=== PATIENT | female | born 1980 | race Caucasian/White ===

== ENCOUNTER 2017-03-12 16:39 | Emergency (ER) | payer OTHER ==
[~2017-03-12] VITALS: Ht 160 cm; Wt 69.9 kg
[~2017-03-12 16:39] MED LIST: CYCL10TA2 PO; NAPR500T PO; SERT100T PO; birth control pill
[2017-03-12] MEDS ORDERED: BISACODYL 5 MG TABLET.DR. PO STA (17:04)
[2017-03-12] MEDS ORDERED: BISACODYL 10 MG SUPP.RECT. PR ONE (17:15)
[2017-03-12] MEDS ORDERED: MAGNESIUM CITRATE 296 ML SOLUTION. PO ONE (17:15)
[2017-03-12] MEDS ORDERED: BISA10SU55 RC (17:51)
[2017-03-12] MEDS ORDERED: MAGN296S PO (17:51)
--- NOTE | 2017-03-12 17:52 | PHYS DOC ---
Past Medical History Past Medical History: Depression Past Surgical History: , Other Additional Past Surgical Histo: dental surgery Alcohol Use: None Drug Use: None Adult General Chief Complaint Chief Complaint: CONTISPATION HPI HPI Patient is a 36 year old female who presents here today secondary to constipation. Patient reports that her last bowel movement was approximately one week ago. Patient reports that she normally has one bowel movement every 3- 4 days. Patient reports that she was recently started on Pristiq and has been on hydrocodone for approximately 1 week secondary to dental procedure. Patient reports that she's tried some of her grandmother's medications at home that her grandmother uses for constipation without any significant relief. Patient denies any history of hypertension diabetes liver longer kidney problems. Patient has had a in the past but no other abdominal surgeries. Patient does smoke and no alcohol or drugs. Smoking cessation was discussed with the patient. Patient is allergic to penicillin and Augmentin. Patient denies any fevers shakes chills nausea vomiting diarrhea abdominal pain chest pain shortness of breath dysuria frequency or urgency. Patient's physical exam was unremarkable. Patient NABS. Patient's abdomen was soft nontender no rebound or guarding. Patient present with any signs or symptoms of be consistent with an acute surgical abdomen. A/P constipation: This is clinically and hemodynamically stable. Patient does not show any evidence of obstruction. Patient's obstruction series in the ER showed nonspecific gas pattern and no free air or air-fluid levels. Patient is stable for discharge home and to continue outpatient management of her constipation. Patient be given a bottle of mag citrate here in the ER as well as to to collect suppositories and to do collects pills and will be sent home with instructions to continue with the Dulcolax over the next 24-48 hours. If patient still has constipation she may follow up with her primary care doctor for further evaluation. I advised patient that she needs to stop taking any narcotic pills that she likely has opioid-induced constipation. Review of Systems Review of Systems Constitutional: Denies fever or chills [] Eyes: Denies change in visual acuity, redness, or eye pain [] HENT: Denies nasal congestion or sore throat [] All other review systems are negative except as documented in the history of present illness. Current Medications Current Medications Current Medications Medications (Trade) Dose Ordered Sig/Giles Start Time Stop Time Status Last Admin Dose Admin Bisacodyl (Dulcolax Supp) 10 mg 1X ONCE 03/12/17 17:15 03/12/17 17:16 DC 03/12/17 17:31 10 MG Bisacodyl (Dulcolax Tab) 20 mg 1X STAT 03/12/17 17:04 03/12/17 17:10 DC 03/12/17 17:31 20 MG Magnesium Citrate (Citroma) 296 ml 1X ONCE 03/12/17 17:15 03/12/17 17:16 DC 03/12/17 17:32 296 ML Allergies Allergies Allergies Coded Allergies Type Severity Reaction Last Updated Verified Penicillins Allergy Intermediate 12/26/15 Yes amoxicillin Allergy Intermediate Hives. 12/26/15 Yes clavulanic acid Allergy Intermediate Hives. 12/26/15 Yes Physical Exam Physical Exam Constitutional: Well developed, well nourished, no acute distress, non-toxic appearance. [] HENT: Normocephalic, atraumatic, bilateral external ears normal, oropharynx moist, no oral exudates, nose normal. [] Eyes: PERRLA, EOMI, conjunctiva normal, no discharge. [] Neck: Normal range of motion, no tenderness, supple, no stridor. [] Cardiovascular:Heart rate regular rhythm, no murmur [] Lungs & Thorax: Bilateral breath sounds clear to auscultation [] Abdomen: Bowel sounds normal, soft, no tenderness, no masses, no pulsatile masses. [] Skin: Warm, dry, no erythema, no rash. [] Back: No tenderness, no CVA tenderness. [] Extremities: No tenderness, no cyanosis, no clubbing, ROM intact, no edema. [] Neurologic: Alert and oriented X 3, normal motor function, normal sensory function, no focal deficits noted. [] Psychologic: Affect normal, judgement normal, mood normal. [] Current Patient Data Vital Signs Vital Signs Date Time Temp Pulse Resp B/P Pulse Ox O2 Delivery O2 Flow Rate FiO2 03/12/17 16:57 97.9 92 18 124/76 97 Room Air 97.9 EKG EKG [] Radiology/Procedures Radiology/Procedures [] Course & Med Decision Making Course & Med Decision Making Pertinent Labs and Imaging studies reviewed. (See chart for details) [] Dragon Disclaimer Dragon Disclaimer This electronic medical record was generated, in whole or in part, using a voice recognition dictation system. Departure Departure Impression: Primary Impression: Constipation Disposition: 01 HOME, SELF-CARE Condition: STABLE Referrals: HALEY MEMBRENO MD (PCP) Patient Instructions: Constipation, Adult, Magnesium Citrate oral solution Scripts Magnesium Citrate 296 Ml [id number] Ml PO ONCE #296 ML Prov:ALVARO COOK MD 03/12/17 Bisacodyl (Dulcolax)10 Mg Supp.rect10 Mg RC QID PRN CONSTIPATION #10 SUPP.RECT Ref 0 Prov:ALVARO COOK MD 03/12/17 ALVARO COOK MD Mar 12, 2017 17:52
[2017-03-12 17:57] VITALS: BP 114/79
--- NOTE | 2017-03-13 07:51 | RAD ---
ABDOMEN SUPINE UPRIGHT Clinical Indication: Constipation for one week Comparison: None. Technique: Upright and supine views of the abdomen are obtained. Findings: No intra-abdominal free air is seen on the upright view. A couple nonspecific air-fluid levels are present. No dilated bowel loops are seen to suggest obstruction. Some formed fecal material is present within the distal colon. No definite renal calculi are seen. Visualized lower lungs appear clear. Osseous structures and soft tissues demonstrate no acute finding. IMPRESSION: Nonobstructive appearing bowel gas pattern.
== END 2017-03-12 17:59 | disposition home or self-care (01) ==
LOC: ER 16:39
DX: K59.00 Constipation, unspecified (principal); F17.200 Nicotine dependence, unspecified, uncomplicated; Z88.0 Allergy status to penicillin; Z88.1 Allergy status to other antibiotic agents
CPT/HCPCS: 74020; 99284

== ENCOUNTER 2017-05-30 19:10 | Emergency (ER) | payer OTHER ==
[~2017-05-30] VITALS: Ht 160 cm; Wt 67.1 kg
[~2017-05-30 19:10] MED LIST changes: +BISA10SU55 RC; +MAGN296S9 PO
[2017-05-30 19:15] VITALS: BP 114/62
--- NOTE | 2017-05-30 19:50 | PHYS DOC ---
Past Medical History Past Medical History: Anxiety, Depression Past Surgical History: , Other Additional Past Surgical Histo: dental surgery Alcohol Use: None Drug Use: None Adult General Chief Complaint Chief Complaint: DEPRESSION HPI HPI Patient is a 36 year old female with history of anxiety and depression who presents today complaining of increased depression. Patient denies any suicidal homicidal ideation. Patient states every time 3 weeks prior to her menstrual cycle she gets more depressed. She states she feels very depressed right now. She is tearful. She states she follows up with her PCP at [facility] who she saw recently and he refused to admit her inpatient and has been brushing her off with her depression symptoms but put her on Trazadone. Patient states she also follows up with [facility] for counselling. She states she was up all night thinking about "things" again she denies any suicidal/ homicidal ideation. Review of Systems Review of Systems Constitutional: Denies fever or chills [] Eyes: Denies change in visual acuity, redness, or eye pain [] HENT: Denies nasal congestion or sore throat [] Respiratory: Denies cough or shortness of breath [] Cardiovascular: No additional information not addressed in HPI [] GI: Denies abdominal pain, nausea, vomiting, bloody stools or diarrhea [] : Denies dysuria or hematuria [] Musculoskeletal: Denies back pain or joint pain [] Integument: Denies rash or skin lesions [] Neurologic: Denies headache, focal weakness or sensory changes [] Endocrine: Denies polyuria or polydipsia [] pysch:depression. Current Medications Current Medications Current Medications Medications (Trade) Dose Ordered Sig/Giles Start Time Stop Time Status Last Admin Dose Admin Alprazolam (Xanax) 1 mg 1X ONCE 05/30/17 20:00 05/30/17 20:01 Allergies Allergies Allergies Coded Allergies Type Severity Reaction Last Updated Verified Penicillins Allergy Intermediate 12/26/15 Yes amoxicillin Allergy Intermediate Hives. 12/26/15 Yes clavulanic acid Allergy Intermediate Hives. 12/26/15 Yes Physical Exam Physical Exam Constitutional: Well developed, well nourished, no acute distress, non-toxic appearance. [] HENT: Normocephalic, atraumatic, bilateral external ears normal, oropharynx moist, no oral exudates, nose normal. [] Eyes: PERRLA, EOMI, conjunctiva normal, no discharge. [] Neck: Normal range of motion, no tenderness, supple, no stridor. [] Cardiovascular:Heart rate regular rhythm, no murmur [] Lungs & Thorax: Bilateral breath sounds clear to auscultation [] Abdomen: Bowel sounds normal, soft, no tenderness, no masses, no pulsatile masses. [] Skin: Warm, dry, no erythema, no rash. [] Back: No tenderness, no CVA tenderness. [] Extremities: No tenderness, no cyanosis, no clubbing, ROM intact, no edema. [] Neurologic: Alert and oriented X 3, normal motor function, normal sensory function, no focal deficits noted. [] Psychologic: Affect normal, judgement normal, mood normal. [] Current Patient Data Vital Signs Vital Signs Date Time Temp Pulse Resp B/P (MAP) Pulse Ox O2 Delivery O2 Flow Rate FiO2 05/30/17 19:15 98.6 69 16 114/62 (79) 96 Room Air 98.6 EKG EKG [] Radiology/Procedures Radiology/Procedures [] Course & Med Decision Making Course & Med Decision Making Pertinent Labs and Imaging studies reviewed. (See chart for details) This is a 36-year-old female patient who presents to the ED today to be evaluated for depression read this is a chronic condition for her. She is not suicidal/ homicidal. She follows up with her PCP at [facility] as well as [facility]. Please see history of present illness for further information. Patient was given 1 mg of Xanax in the ED and discharged. Instructed her to continue following up with her PCP as well as [facility]. Dragon Disclaimer Dragon Disclaimer This electronic medical record was generated, in whole or in part, using a voice recognition dictation system. Departure Departure Impression: Primary Impression: Depression Disposition: 01 HOME, SELF-CARE Condition: STABLE Referrals: HALEY MEMBRENO MD (PCP) [facility] as soon as you can Patient Instructions: Depression, Adult Additional Instructions: You were seen for chronic depression. We highly recommend you follow-up with [facility] as well as a primary care doctor at [facility] for ongoing depression. Come back to the ED at any point you have concerning symptoms. Problem Qualifiers Primary Impression: Depression Depression Type: unspecified Qualified Codes: F32.9 - Major depressive disorder, single episode, unspecified GALE OLIVEIRA RESEARCH PSYCHOLOGIST May 30, 2017 19:50
[2017-05-30] MEDS ORDERED: ALPRAZolam 0.5 MG TABLET PO ONE (20:00)
== END 2017-05-30 20:09 | disposition home or self-care (01) ==
LOC: ER 19:10
DX: F32.9 Major depressive disorder, single episode, unspecified (principal); F41.9 Anxiety disorder, unspecified; Z88.0 Allergy status to penicillin; Z88.1 Allergy status to other antibiotic agents
CPT/HCPCS: 99282

== ENCOUNTER → 2018-03-13 | Outpatient (CLI) | payer OTHER | END | disposition home or self-care (01) | LOC: KCIC US 08:34 | DX: D73.89 Other diseases of spleen (principal); R63.4 Abnormal weight loss; Z87.891 Personal history of nicotine dependence | CPT/HCPCS: 76700 ==